=== PATIENT | male | born 1965 | race African-American/Black ===

== ENCOUNTER 2017-04-28 17:51 | Emergency (ER) | payer MEDICARE, OTHER ==
[~2017-04-28] VITALS: Ht 162.6 cm; Wt 77.1 kg
[~2017-04-28 17:51] MED LIST: CEPH-264 PO
[2017-04-28 18:30] VITALS: BP 172/89
[2017-04-28] MEDS ORDERED: DIPHTH,PERTUSS(ACELL),TET TOX 0.5 ML DISP.SYRIN. VAX IM ONE (18:45)
[2017-04-28] MEDS ORDERED: ACETAMINOPHEN 500 MG TABLET PO ONE (19:00)
[2017-04-28] MEDS ORDERED: IBUPROFEN 800 MG TABLET. PO ONE (19:00)
[2017-04-28] MEDS ORDERED: diphenhydrAMINE HCL 25 MG CAPSULE PO ONE ×2 (19:00→19:15)
[2017-04-28] MEDS ORDERED: FAMOTIDINE 20 MG TABLET. ONE (19:00)
[2017-04-28] MEDS ORDERED: predniSONE 20 MG TABLET ONE (19:00)
[2017-04-28] MEDS ORDERED: FAMOTIDINE 20 MG TABLET. PO ONE (19:15)
[2017-04-28] MEDS ORDERED: predniSONE 20 MG TABLET PO ONE (19:15)
[2017-04-28] MEDS ORDERED: CLINDAMYCIN HCL 150 MG CAPSULE. PO ONE (20:00)
[2017-04-28] MEDS ORDERED: CLIN150C14 PO (20:02)
[2017-04-28] MEDS ORDERED: DIPH25CA58 PO (20:02)
[2017-04-28] MEDS ORDERED: FAMO-63 PO (20:02)
[2017-04-28] MEDS ORDERED: PRED50TA PO (20:02)
--- NOTE | 2017-04-28 20:03 | PHYS DOC ---
Past Medical History Past Medical History: Other Additional Past Medical Histor: "brain damage at " Past Surgical History: Other Additional Past Surgical Histo: hernia repair at Alcohol Use: None Drug Use: None Adult General Chief Complaint Chief Complaint: INSECT BITE HPI HPI Patient is a 51 year old male with history of MR who presents today with right elbow possible spider bite. Patient himself states he got bit by a spider. Patient states it happened yesterday. Mother is also in the ED stating patient reported this to her today Review of Systems Review of Systems Constitutional: Denies fever or chills [] Eyes: Denies change in visual acuity, redness, or eye pain [] HENT: Denies nasal congestion or sore throat [] Respiratory: Denies cough or shortness of breath [] Cardiovascular: No additional information not addressed in HPI [] GI: Denies abdominal pain, nausea, vomiting, bloody stools or diarrhea [] : Denies dysuria or hematuria [] Musculoskeletal: Denies back pain or joint pain [] Integument: Spider bite to the right elbow Neurologic: Denies headache, focal weakness or sensory changes [] Endocrine: Denies polyuria or polydipsia [] Current Medications Current Medications Current Medications Medications (Trade) Dose Ordered Sig/Ke Start Time Stop Time Status Last Admin Dose Admin Acetaminophen (Tylenol) 1,000 mg 1X ONCE 04/28/17 19:00 04/28/17 19:01 DC 04/28/17 19:04 1,000 MG Clindamycin HCl (Cleocin) 450 mg 1X ONCE 04/28/17 20:00 04/28/17 20:01 DC Diphenhydramine HCl (Benadryl) 25 mg STK-MED ONCE 04/28/17 19:00 04/28/17 19:01 DC Diphtheria/ Tetanus/Acell Pertussis (Boostrix) 0.5 ml ONCE ONCE 04/28/17 18:45 04/28/17 18:46 DC 04/28/17 19:04 0.5 ML Famotidine (Pepcid) 20 mg STK-MED ONCE 04/28/17 19:00 04/28/17 19:01 DC Ibuprofen (Motrin) 800 mg 1X ONCE 04/28/17 19:00 04/28/17 19:01 DC 04/28/17 19:04 800 MG Prednisone (Prednisone) 20 mg STK-MED ONCE 04/28/17 19:00 04/28/17 19:01 DC Allergies Allergies Allergies Coded Allergies Type Severity Reaction Last Updated Verified No Known Drug Allergies 02/19/14 No Physical Exam Physical Exam Constitutional: Well developed, well nourished, no acute distress, non-toxic appearance. [] HENT: Normocephalic, atraumatic, bilateral external ears normal, oropharynx moist, no oral exudates, nose normal. [] Eyes: PERRLA, EOMI, conjunctiva normal, no discharge. [] Neck: Normal range of motion, no tenderness, supple, no stridor. [] Cardiovascular:Heart rate regular rhythm, no murmur [] Lungs & Thorax: Bilateral breath sounds clear to auscultation [] Abdomen: Bowel sounds normal, soft, no tenderness, no masses, no pulsatile masses. [] Skin: Right elbow with mild amount of soft tissue swelling. There is an area of cellulitis approximately 4 x 2 cm. This area is warm and tender to touch with some blisters on the right. Patient has full range of motion to the right elbow including flexion and extension. Adequate plantar flexion and dorsiflexion of the right forearm. +2 right radial pulse. Cap refill less than 2 seconds the right upper extremity. Back: No tenderness, no CVA tenderness. [] Extremities: No tenderness, no cyanosis, no clubbing, ROM intact, no edema. [] Neurologic: Alert and oriented X 3, normal motor function, normal sensory function, no focal deficits noted. [] Psychologic: Affect normal, judgement normal, mood normal. [] Current Patient Data Vital Signs Vital Signs Date Time Temp Pulse Resp B/P (MAP) Pulse Ox O2 Delivery O2 Flow Rate FiO2 04/28/17 18:30 100.6 101 20 99 Room Air 100.6 EKG EKG [] Radiology/Procedures Radiology/Procedures [] Course & Med Decision Making Course & Med Decision Making Pertinent Labs and Imaging studies reviewed. (See chart for details) Spider bite. Patient is in the ED with right elbow cellulitis. He states is from a spider bite yesterday. X-rays of the right elbow interpreted by Dr. Bill were noted for bursitis of the right elbow. Patient was given prednisone, Benadryl, Pepcid, clindamycin. Discharged with instructions to keep the area clean and dry. Tylenol/ Motrin for pain or fever. He did have a slight temperature in the ED at 100.6. He does not appear septic. The infection on the elbow appears superficial. He was discharged with clindamycin, prednisone, Pepcid, Benadryl. Instructed to follow-up with the primary care doctor on Tuesday. His tetanus was updated Dragon Disclaimer Dragon Disclaimer This electronic medical record was generated, in whole or in part, using a voice recognition dictation system. Departure Departure Impression: Primary Impression: Cellulitis of right elbow Additional Impressions: Bursitis of right elbow Fever Spider bite Disposition: HOME, SELF-CARE Condition: STABLE Referrals: LINNEA SILVA MD (PCP) Follow-up with your doctor on Tuesday Patient Instructions: Bursitis, Cellulitis, Spider Bite Additional Instructions: You were seen with infection of the right elbow. Please keep the area clean and dry. Complete your antibiotics. Take the rest of the medications as prescribed. Take Tylenol every 4 hours and Motrin every 6 hours as needed for fever. Follow- up with the primary care doctor in one week. Scripts Prednisone (PREDNISONE) 50 Mg Tablet 1 TAB PO DAILY, #5 TAB Prov: KIM COLE APRN 04/28/17 Diphenhydramine Hcl (BENADRYL) 25 Mg Capsule 1 CAP PO Q4HRS W/A, #30 CAP 1 Refill Prov: KIM COLE APRN 04/28/17 Famotidine (PEPCID) 20 Mg Tablet 20 MG PO DAILY for 14 Days, #14 TAB Prov: KIM COLE APRN 04/28/17 Clindamycin Hcl (CLINDAMYCIN HCL) 150 Mg Capsule 3 CAP PO TID, #90 CAP Prov: KIM COLE APRN 04/28/17 Problem Qualifiers Additional Impressions: Bursitis of right elbow Elbow bursitis location: other elbow bursa Qualified Codes: M70.31 - Other bursitis of elbow, right elbow Fever Fever type: unspecified Qualified Codes: R50.9 - Fever, unspecified Spider bite Encounter type: initial encounter Injury intent: accidental or unintentional Qualified Codes: T63.301A - Toxic effect of unspecified spider venom, accidental (unintentional), initial encounter KIM COLE APRN Apr 28, 2017 20:03
--- NOTE | 2017-04-29 07:55 | RAD ---
Indication pain and swelling. Discoloration of the elbow. Insect bite. Duration of symptoms 3 days. AP oblique and lateral views of the right elbow were obtained. No acute bony finding is seen. There is soft tissue swelling about the elbow particularly over the olecranon.
== END 2017-04-28 20:11 | disposition home or self-care (01) ==
LOC: ER 17:51
DX: L03.113 Cellulitis of right upper limb (principal); M70.31 Other bursitis of elbow, right elbow; R50.9 Fever, unspecified; Z23 Encounter for immunization; T63.301A Toxic effect of unspecified spider venom, accidental (unintentional), initial encounter; Y92.89 Other specified places as the place of occurrence of the external cause
CPT/HCPCS: 73080; 90471; 90715; 99284; J7512; Q0163

== ENCOUNTER 2017-07-10 00:19 | Emergency (ER) | payer MEDICARE, OTHER ==
[~2017-07-10] VITALS: Ht 165.1 cm; Wt 77.1 kg
[~2017-07-10 00:19] MED LIST changes: +CLIN150C14 PO; +DIPH25CA58 PO; +FAMO-63 PO; +PRED50TA PO
[2017-07-10 00:25] VITALS: BP 182/98
--- NOTE | 2017-07-10 01:26 | PHYS DOC ---
Past Medical History Past Medical History: Seizure, Other Additional Past Medical Histor: "brain damage at " Past Surgical History: Other Additional Past Surgical Histo: hernia repair at Alcohol Use: None Drug Use: None Adult General Chief Complaint Chief Complaint: MECHANICAL FALL HPI HPI Patient is a 51 year old gentleman who presents to the ER today secondary to a laceration to his right forehead. Patient's mother reports she was helped him take a bath and he tripped and fell is head against the headboard of the bed. Patient denies any loss of consciousness his headache nausea vomiting diarrhea blurred vision double vision. Patient is not on any anticoagulant therapy. CT scan not indicated. Patient's family criteria. This was discussed with the family and they're in agreement. Review of systems: Constitutional: Denies fever or chills Eyes: Denies change in visual acuity, redness, or eye pain HENT: Denies nasal congestion or sore throat All other review systems are negative except as documented in the history of present illness portion. Physical exam: Constitutional: Well developed, well nourished, no acute distress, non-toxic appearance. HENT: Normocephalic, traumatic, bilateral external ears normal, nose normal. Eyes: EOMI, conjunctiva normal, no discharge. Neck: Normal range of motion, no tenderness, supple, no stridor. Cardiovascular:Heart rate regular rhythm Lungs & Thorax: Bilateral breath sounds clear to auscultation no respiratory distress Abdomen: Bowel sounds normal, soft, no tenderness, no masses, no pulsatile masses. Skin: Warm, dry, no erythema, no rash. Back: No tenderness, no CVA tenderness. Extremities: No tenderness, no cyanosis, no clubbing, ROM intact, no edema. Neurologic: Alert and oriented X 3, normal motor function, normal sensory function, no focal deficits noted. Psychologic: Affect normal, judgement normal, mood normal. Sutured Wound was irrigated and cleansed with saline and Betadine. A clean and sterile fashion the wound was infiltrated with 3 mL of 1% lidocaine with epi. 3 times 5. 0 Ethilon simple interrupted sutures were placed. Patient tolerated procedure well. Assessment and plan 51-year-old gentleman who presents here today with head trauma. CT scan not indicated. Patient sutured in the ED. Patient tolerated procedure well. We'll check in 2 days sutures out in 7 days. No emesis of intracranial pathology by history exam and mechanism. No C-spine tenderness to palpation. Current Medications Current Medications Current Medications Medications (Trade) Dose Ordered Sig/Ke Start Time Stop Time Status Last Admin Dose Admin Lidocaine/ Epinephrine (Xylocaine 1%-Epi 1:100,000) 20 ml 1X ONCE 07/10/17 01:30 07/10/17 01:31 DC Allergies Allergies Allergies Coded Allergies Type Severity Reaction Last Updated Verified No Known Drug Allergies 02/19/14 No Current Patient Data Vital Signs Vital Signs Date Time Temp Pulse Resp B/P (MAP) Pulse Ox O2 Delivery O2 Flow Rate FiO2 07/10/17 00:25 98.6 105 20 182/98 (126) 98 Room Air 98.6 EKG EKG [] Radiology/Procedures Radiology/Procedures [] Course & Med Decision Making Course & Med Decision Making Pertinent Labs and Imaging studies reviewed. (See chart for details) [] Dragon Disclaimer Dragon Disclaimer This electronic medical record was generated, in whole or in part, using a voice recognition dictation system. Departure Departure Impression: Primary Impression: Head trauma Additional Impression: Facial laceration Disposition: HOME, SELF-CARE Condition: IMPROVED Referrals: LINNEA SILVA MD (PCP) Patient Instructions: Facial Laceration, Head Injury, Adult Additional Instructions: Thank you for allowing us to participate in your care today. Followup with your primary care physician in 3 days if your symptoms do not improve. Call your Primary Doctor tomorrow and inform them of your visit today. If you do not have a primary care provider you can ask for a list of our primary care providers. Return to the emergency department you have any new or concerning findings. This should be evaluated by the primary care physician and any necessary consulting services for continued management within a few days after discharge. Return to emergency room if you have any new or concerning symptoms including but not limited to fever, chills, nausea, vomiting, intractable pain, any new rashes, chest pain, shortness of air, uncontrolled bleeding, difficulty breathing, and/or vision loss. You may have been prescribed medication that can change in your level of thinking and ability to operate machinery. These medications include hydrocodone and Ativan. Also, Benadryl has been known to do this as well. Be sure to check with your pharmacist and ask if the medications you've prescribed can affect your level of consciousness. I recommend not operating heavy machinery or driving while on medication such as these. He will need a wound check by her doctor in 2 days. He can have the sutures removed in 5-7 days. Problem Qualifiers Primary Impression: Head trauma Encounter type: initial encounter Qualified Codes: S09.90XA - Unspecified injury of head, initial encounter Additional Impression: Facial laceration Encounter type: initial encounter Qualified Codes: S01.81XA - Laceration without foreign body of other part of head, initial encounter KRUNAL FORREST MD Jul 10, 2017 01:26
[2017-07-10] MEDS ORDERED: LIDOCAINE 1%/EPI 1:100,000 20 ML VIAL. INJ ONE (01:30)
== END 2017-07-10 01:45 | disposition home or self-care (01) ==
LOC: ER 00:19
DX: S01.81XA Laceration without foreign body of other part of head, initial encounter (principal); W01.0XXA Fall on same level from slipping, tripping and stumbling without subsequent striking against object, initial encounter; Y93.89 Activity, other specified; Y99.8 Other external cause status; Y92.89 Other specified places as the place of occurrence of the external cause
CPT/HCPCS: 12011; 99283-25

== ENCOUNTER 2019-09-13 07:51 | Emergency (ER) | payer MEDICARE, MEDICAID ==
[~2019-09-13] VITALS: Ht 177.8 cm; Wt 90.7 kg
[2019-09-13] MEDS ORDERED: IV NORMAL SALINE 1000ML BAG 1,000 ML IV SCH (07:56)
[2019-09-13] MEDS ORDERED: fentaNYL PF VIAL 100 MCG/2 ML VIAL IV PRN (08:00)
[2019-09-13] MEDS ORDERED: ONDANSETRON PF 4 MG/2 ML VIAL. IV ONE (08:00)
--- NOTE | 2019-09-13 08:11 | PHYS DOC ---
Past Medical History Past Medical History: Seizure, Other Additional Past Medical Histor: "brain damage at " Past Surgical History: Other Additional Past Surgical Histo: hernia repair at Alcohol Use: None Drug Use: None Adult General Chief Complaint Chief Complaint: abdominal pain HPI HPI Patient is a 53-year-old male who presents from nursing facility with report of elevated blood pressure. Upon EMS arrival, they indicate that patient's blood pressure was found to be in the 150s systolic. Patient reported to them that he is just not feeling well. Upon arrival, when asked if he is hurting anywhere, patient indicates that he is hurting in his abdomen and points to his left lower abdomen. He does admit that he is just not been feeling well. Patient states t hat the pain in his left lower abdomen is really bad. He is not able to assign a number to his level of pain.[] Review of Systems Review of Systems Constitutional: Denies fever or chills [] Respiratory: Denies cough or shortness of breath [] Cardiovascular: No additional information not addressed in HPI [] GI: Complains of abdominal pain without vomiting or diarrhea [] Integument: Denies rash or skin lesions [] Neurologic: Denies headache, focal weakness or sensory changes [] All other systems were reviewed and found to be within normal limits, except as documented in this note. Current Medications Current Medications Current Medications Medications (Trade) Dose Ordered Sig/Ke Start Time Stop Time Status Last Admin Dose Admin Fentanyl Citrate (Fentanyl 2ml Vial) 25 mcg PRN Q15MIN PRN 09/13/19 08:00 09/14/19 07:59 Info (CONTRAST GIVEN -- Rx MONITORING) 1 each PRN DAILY PRN 09/13/19 09:30 09/15/19 09:29 Iohexol (Omnipaque 300 Mg/ml) 75 ml 1X ONCE 09/13/19 09:30 09/13/19 09:31 DC 09/13/19 09:30 75 ML Ondansetron HCl (Zofran) 4 mg 1X ONCE 09/13/19 08:00 09/13/19 08:01 DC 09/13/19 08:20 4 MG Sodium Chloride 1,000 ml @ 1,000 mls/hr Q1H 09/13/19 07:56 09/13/19 08:55 DC 09/13/19 08:18 1,000 MLS/HR Allergies Allergies Allergies Coded Allergies Type Severity Reaction Last Updated Verified No Known Drug Allergies 02/19/14 No Physical Exam Physical Exam Constitutional: Well developed, well nourished, no acute distress, non-toxic appearance. [] HENT: Normocephalic, atraumatic, bilateral external ears normal, oropharynx moist, no oral exudates, nose normal. [] Eyes: PERRLA, EOMI, conjunctiva normal, no discharge. [] Neck: Normal range of motion, no tenderness, supple, no stridor. [] Cardiovascular: Regular rate and rhythm[] Lungs & Thorax: Bilateral breath sounds clear to auscultation [] Abdomen: Bowel sounds normal, soft, with left lower quadrant tenderness. [] Skin: Warm, dry, no erythema, no rash. [] Extremities: No tenderness, no cyanosis, no clubbing, ROM intact, no edema. [] Neurologic: Awake and alert. [] Current Patient Data Vital Signs Vital Signs Date Time Temp Pulse Resp B/P (MAP) Pulse Ox O2 Delivery O2 Flow Rate FiO2 09/13/19 11:00 74 20 98 09/13/19 07:58 99.0 152/92 (112) Room Air 99.0 Lab Values Laboratory Tests Test 09/13/19 08:10 09/13/19 08:15 09/13/19 09:25 White Blood Count 6.7 x10^3/uL (4.0-11.0) Red Blood Count 4.80 x10^6/uL (4.30-5.70) Hemoglobin 13.0 g/dL (13.0-17.5) Hematocrit 38.4 % (39.0-53.0) L Mean Corpuscular Volume 80 fL (79-100) Mean Corpuscular Hemoglobin 27 pg (25-35) Mean Corpuscular Hemoglobin Concent 34 g/dL (31-37) Red Cell Distribution Width 13.4 % (11.5-14.5) Platelet Count 131 x10^3/uL (140-400) L Neutrophils (%) (Auto) 52 % (31-73) Lymphocytes (%) (Auto) 40 % (24-48) Monocytes (%) (Auto) 7 % (0-9) Eosinophils (%) (Auto) 0 % (0-3) Basophils (%) (Auto) 0 % (0-3) Neutrophils # (Auto) 3.5 x10^3/uL (1.8-7.7) Lymphocytes # (Auto) 2.7 x10^3/uL (1.0-4.8) Monocytes # (Auto) 0.5 x10^3/uL (0.0-1.1) Eosinophils # (Auto) 0.0 x10^3/uL (0.0-0.7) Basophils # (Auto) 0.0 x10^3/uL (0.0-0.2) Sodium Level 143 mmol/L (136-145) Potassium Level 4.2 mmol/L (3.5-5.1) Chloride Level 105 mmol/L (98-107) Carbon Dioxide Level 27 mmol/L (21-32) Anion Gap 11 (6-14) Blood Urea Nitrogen 10 mg/dL (8-26) Creatinine 0.8 mg/dL (0.7-1.3) Estimated GFR (Cockcroft-Gault) 121.4 BUN/Creatinine Ratio 13 (6-20) Glucose Level 93 mg/dL (70-99) Calcium Level 9.2 mg/dL (8.5-10.1) Total Bilirubin 0.4 mg/dL (0.2-1.0) Aspartate Amino Transferase (AST) 16 U/L (15-37) Alanine Aminotransferase (ALT) 21 U/L (16-63) Alkaline Phosphatase 74 U/L (46-116) Total Protein 8.7 g/dL (6.4-8.2) H Albumin 4.0 g/dL (3.4-5.0) Albumin/Globulin Ratio 0.9 (1.0-1.7) L Lipase 87 U/L (73-393) Urine Collection Type U cath Urine Color Yellow Urine Clarity Clear Urine pH 7.0 Urine Specific [place] 1.020 Urine Protein Negative mg/dL (NEG-TRACE) Urine Glucose (UA) Negative mg/dL (NEG) Urine Ketones (Stick) Negative mg/dL (NEG) Urine Blood Negative (NEG) Urine Nitrite Negative (NEG) Urine Bilirubin Negative (NEG) Urine Urobilinogen Dipstick 1.0 mg/dL (0.2 mg/dL) Urine Leukocyte Esterase Negative (NEG) Urine RBC 0 /HPF (0-2) Urine WBC Occ /HPF (0-4) Urine Transitional Epithelial Cells Occ /LPF Urine Bacteria 0 /HPF (0-FEW) Urine Mucus Slight /LPF Laboratory Tests 09/13/19 08:10 Laboratory Tests 09/13/19 08:15 EKG EKG [] Radiology/Procedures Radiology/Procedures [] Impressions: PROCEDURE: CT ABD PELV W/ IV CONTRST ONLY EXAM: CT ABDOMEN/PELVIS WITH CONTRAST. HISTORY: Left lower quadrant pain. TECHNIQUE: Computed tomography of the abdomen and pelvis was performed after the intravenous administration of iodinated contrast. COMPARISON: None. FINDINGS: Lung windows through the visualized portions of the bases reveal mild atelectasis. Bone windows reveal no suspicious lesions. The liver, gallbladder, pancreas, adrenal glands and kidneys are unremarkable. There are calcified granulomas in the spleen. There is a small hiatal hernia. There are no pathologically enlarged lymph nodes. The appendix is not inflamed. There is no inflammatory process in the left lower quadrant. There is no small bowel obstruction. The prostate is moderately enlarged at 4.5 cm. There is mild diffuse bladder wall thickening. IMPRESSION: 1. No cause for pain is identified. 2. Diffuse bladder wall thickening indicates chronic outlet obstruction or inflammation. Correlate with urinalysis. Moderate benign prostatic hypertrophy. 3. Small hiatal hernia. Course & Med Decision Making Course & Med Decision Making Pertinent Labs and Imaging studies reviewed. (See chart for details) [] Dragon Disclaimer Dragon Disclaimer This electronic medical record was generated, in whole or in part, using a voice recognition dictation system. Departure Departure Impression: Primary Impression: Abdominal pain Disposition: 01 HOME, SELF-CARE Condition: STABLE Referrals: LINNEA SILVA MD (PCP) Patient Instructions: Abdominal Pain Problem Qualifiers Primary Impression: Abdominal pain Abdominal location: unspecified location Qualified Codes: R10.9 - Unspecified abdominal pain CHIN MILES Jr. DO Sep 13, 2019 08:11
[2019-09-13 08:26] LABS: BASO % 0 % (0-3); EOS % 0 % (0-3); HEMATOCRIT 38.4 % (39.0-53.0); LYMPH # 2.7 x10^3/uL (1.0-4.8); LYMPH % 40 % (24-48); MEAN CORPUSCULAR HEMOGLOBIN 27 pg (25-35); MEAN CORPUSCULAR HGB CONC 34 g/dL (31-37); MEAN CORPUSCULAR VOLUME 80 fL (79-100); MONO # 0.5 x10^3/uL (0.0-1.1); MONO % 7 % (0-9); NEUT # 3.5 x10^3/uL (1.8-7.7); NEUT % 52 % (31-73); PLATELET COUNT 131 x10^3/uL (140-400); RED CELL DISTRIBUTION WIDTH 13.4 % (11.5-14.5); WHITE BLOOD COUNT 6.7 x10^3/uL (4.0-11.0)
[2019-09-13 08:41] LABS: CALCIUM 9.2 mg/dL (8.5-10.1); CREATININE 0.8 mg/dL (0.7-1.3); GFR 121.4; POTASSIUM 4.2 mmol/L (3.5-5.1)
[2019-09-13 08:45] LABS: ALBUMIN/GLOBULIN RATIO 0.9 (1.0-1.7); TOTAL BILIRUBIN 0.4 mg/dL (0.2-1.0); TOTAL PROTEIN 8.7 g/dL (6.4-8.2)
[2019-09-13] MEDS ORDERED: CONTRAST GIVEN. MC PRN (09:30)
[2019-09-13] MEDS ORDERED: IOHEXOL 300 MG/ML 100ML VIAL. IV ONE (09:30)
[2019-09-13 09:36] LABS: BILIRUBIN,URINE NEGATIVE (NEG); CLARITY,URINE CLEAR; COLOR,URINE YELLOW; NITRITE,URINE NEGATIVE (NEG); PROTEIN,URINE NEGATIVE (NEG-TRACE)
[2019-09-13 09:56] LABS: BACTERIA,URINE 0 /HPF (0-FEW); RBC,URINE 0 /HPF (0-2); WBC,URINE OCC /HPF (0-4)
--- NOTE | 2019-09-13 11:46 | EKG ---
[facility] [address] [place] [address] Test Date: 2019-09-13 Test Time: 07:57:02 Pat Name: SHAMEKA BLOUNT Department: Room: Gender: M Cold Strip Feeder: : 1965 Requested By: CHIN MILES Order Number: [id number] Reading MD: Ziggy Moncada MD Measurements Intervals [place] Rate: 99 P: 57 WA: 138 QRS: 78 QRSD: 98 T: 24 QT: 338 QTc: 438 Interpretive Statements SINUS RHYTHM Electronically Signed On 10-01-2019 8:14:57 [employer] MANAGER by Ziggy Moncada MD
--- NOTE | 2019-09-13 12:08 | RAD ---
EXAM: CT ABDOMEN/PELVIS WITH CONTRAST. HISTORY: Left lower quadrant pain. TECHNIQUE: Computed tomography of the abdomen and pelvis was performed after the intravenous administration of iodinated contrast. COMPARISON: None. FINDINGS: Lung windows through the visualized portions of the bases reveal mild atelectasis. Bone windows reveal no suspicious lesions. The liver, gallbladder, pancreas, adrenal glands and kidneys are unremarkable. There are calcified granulomas in the spleen. There is a small hiatal hernia. There are no pathologically enlarged lymph nodes. The appendix is not inflamed. There is no inflammatory process in the left lower quadrant. There is no small bowel obstruction. The prostate is moderately enlarged at 4.5 cm. There is mild diffuse bladder wall thickening. IMPRESSION: 1. No cause for pain is identified. 2. Diffuse bladder wall thickening indicates chronic outlet obstruction or inflammation. Correlate with urinalysis. Moderate benign prostatic hypertrophy. 3. Small hiatal hernia. *One or more of the following individualized dose reduction techniques were utilized for this examination: 1. Automated exposure control. 2. Adjustment of the mA and/or kV according to patient size. 3. Use of iterative reconstruction technique. Electronically signed by: Pablo Aponte MD (09/13/2019 12:05 PM) [facility]
[2019-09-13 13:13] VITALS: BP 136/83
== END 2019-09-13 13:52 | disposition home or self-care (01) ==
LOC: ER 07:51
DX: R10.32 Left lower quadrant pain (principal); R03.0 Elevated blood-pressure reading, without diagnosis of hypertension
CPT/HCPCS: 36415; 74177; 80053; 81001; 83690; 85025; 93005; 96374; 99285; J2405; J7030; P9612; Q9967